=== PATIENT | female | born 1965 | race American Indian/Alaskan Native ===

== ENCOUNTER 2019-01-06 09:32 | Outpatient (CLI) | payer BC, MEDICARE ==
--- NOTE | 2019-01-10 08:51 | Magnetic Resonance Report ---
BILATERAL BREAST MRI WITHOUT AND WITH CONTRAST: 01/06/19 09:32:00 CLINICAL: Mastodynia. Family history of breast cancer and history of bilateral benign surgical excisions. COMPARISON:07/12/18 bilateral screening mammogram. TECHNIQUE: Axial 1.0-mm T1 without, axial high resolution 2.0-mm T2 and axial 1.0-mm dynamic Vibrant high-resolution postcontrast T1 fat saturation sequences on a 1.5 Pat magnet. The examination was performed with an 8 channel dedicated [place] breast coil. Post processing with CAD and subtraction was performed on an [employer] workstation. 16.0 cc of Multihance was injected without incident for the contrast portion of the exam. Consent was obtained prior to the administration of the contrast. FINDINGS: Right: Minimal background parenchymal enhancement. No mass or suspicious enhancement. No suspicious lymph nodes. Left: Minimal background parenchymal enhancement. No mass or suspicious enhancement. Nonenhancing postsurgical scar with architectural distortion in the upper inner quadrant which correlates with scar on the mammogram. Nonenhancing periareolar skin thickening consistent with benign postsurgical changes. No suspicious lymph nodes. IMPRESSION: Negative study. Recommend routine mammographic screening. BI-RADS 2 - - Benign
== END 2019-01-06 09:33 | disposition home or self-care (01) ==
LOC: SPVIMAG 09:32
PROVIDERS: ATTEND Surgery
DX: N64.4 Mastodynia (principal); E78.5 Hyperlipidemia, unspecified; I10 Essential (primary) hypertension; Z90.710 Acquired absence of both cervix and uterus; Z80.3 Family history of malignant neoplasm of breast
CPT/HCPCS: 36415; 82565; 84520; A9577; C8908; 77049

== ENCOUNTER 2019-08-01 09:42 | Outpatient (CLI) | payer BC, MEDICARE ==
--- NOTE | 2019-08-01 10:25 | Mammography Report ---
DIGITAL SCREENING MAMMOGRAM WITH CAD, 08/01/2019 INDICATION: Routine screening mammography. History of multiple bilateral benign excisions. TECHNIQUE: Digital bilateral 2D mammography was obtained in the craniocaudal and mediolateral obliq ue projections. This examination was interpreted with the benefit of Computer-Aided Detection analysi s. COMPARISON: 07/12/2018 mammogram and negative MRI 01/06/2019 FINDINGS: Breast Density: The breasts are extremely dense, which lowers the sensitivity of mammography. There is no evidence of dominant mass, suspicious calcifications or suspicious architectural distorti on in either breast. Stable bilateral benign postsurgical scar. Bilateral benign calcifications. IMPRESSION: No mammographic evidence of malignancy. Follow up recommendation: Routine yearly BI-RADS Category 2: Benign. A "normal" or negative report should not discourage follow up or biopsy of a clinically significant f inding. A written summary of these findings will be mailed to the patient. The patient will be entered into a mammography reporting system which will generate a reminder letter for the patient's next appointmen t at the appropriate interval. The [employer] recommends yearly mammograms starting at age 40 and continuing as l arlene as a woman is in good health. Breast MRI is recommended for women with an approximate 20-25% or greater lifetime risk of breast cancer, including women with a strong family history of breast or ova qamar cancer or who have been treated for Hodgkin's disease. Signer Name: Alan Cabrales MD Signed: 08/01/2019 10:21 AM Workstation Name: [id number]
== END 2019-08-01 09:43 | disposition home or self-care (01) ==
LOC: SPVWC 09:42
PROVIDERS: ATTEND Surgery
DX: Z12.31 Encounter for screening mammogram for malignant neoplasm of breast (principal); I10 Essential (primary) hypertension; E11.9 Type 2 diabetes mellitus without complications
CPT/HCPCS: 77067

== ENCOUNTER 2020-08-06 08:33 | Outpatient (CLI) | payer BC, MEDICARE ==
--- NOTE | 2020-08-06 09:33 | Mammography Report ---
DIGITAL SCREENING MAMMOGRAM WITH CAD, 08/06/2020 CLINICAL INFORMATION / INDICATION: Routine screening mammography. SCREENING MAMMOGRAM TECHNIQUE: Digital bilateral 2D mammography was obtained in the craniocaudal and mediolateral obliqu e projections. This examination was interpreted with the benefit of Computer-Aided Detection analysis . COMPARISON: 08/01/2019, 07/12/2018, 11/16/2013 FINDINGS: Breast Density: The breasts are extremely dense, which lowers the sensitivity of mammography. No dominant mass, suspicious calcifications, or architectural distortion in either breast. Postsurgical changes are noted in both breasts. IMPRESSION: No mammographic evidence of malignancy. Follow up recommendation: Routine yearly BI-RADS Category 2: Benign. A "normal" or negative report should not discourage follow up or biopsy of a clinically significant f inding. A written summary of these findings will be mailed to the patient. The patient will be entered into a mammography reporting system which will generate a reminder letter for the patient's next appointmen t at the appropriate interval. The [employer] recommends yearly mammograms starting at age 40 and continuing as l arlene as a woman is in good health. Breast MRI is recommended for women with an approximate 20-25% or greater lifetime risk of breast cancer, including women with a strong family history of breast or ova qamar cancer or who have been treated for Hodgkin's disease. Signer Name: Liliana Coleman MD Signed: 08/06/2020 9:28 AM Workstation Name: [email or web address]
== END 2020-08-06 08:34 | disposition home or self-care (01) ==
LOC: SPVWC 08:33
PROVIDERS: ATTEND Surgery
DX: Z12.31 Encounter for screening mammogram for malignant neoplasm of breast (principal); N64.89 Other specified disorders of breast
CPT/HCPCS: 77067